=== PATIENT | female | born 1960 | race Caucasian/White ===

== ENCOUNTER 2025-02-03 10:51 | Day surgery (SDC) | payer MEDICARE, SELFPAY ==
--- NOTE | 2025-01-14 15:39 | PAT.ANESEVAL ---
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 When Was Last Pacemaker Check QUESTION #4 FULL TEXT: You/Your Family Experience fever (hyperthermia) with Anesthesia Last Oral Intake Last Oral intake: Last Oral Intake NPO since Meds taken in AM with sips of water? 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: PONV - farmworker cranberry Female Yes 01/14/25 11:09 HX of Motion Sickness No 01/14/25 11:09 HX of N/V After Surgery No 01/14/25 11:09 Non-Smoker Yes 01/14/25 11:09 Duration of Surgery greater Yes 01/14/25 11:09 than 60 minutes Number of Risk Factors 3 01/14/25 11:09 PONV Score Moderate Risk 01/14/25 11:09 Respiratory Assessment Respiratory Assessment - farmworker cranberry: Respiratory Tract Infection Hx - farmworker cranberry Hx Respiratory Tract Infection No 01/14/25 11:09 STOP Sleep Apnea STOP Sleep Apnea - farmworker cranberry: STOP Sleep Apnea - farmworker cranberry Hx Hypertension Yes 01/14/25 11:09 Hx Sleep Apnea No 01/14/25 11:09 CPAP BIPAP Do you snore loudly (louder No 01/14/25 11:09 than talking or can be heard Do you often feel tired/ No 01/14/25 11:09 fatigued/ sleepy during daytime? Has anyone observed you stop No 01/14/25 11:09 breathing during sleep? STOP Results Negative 01/14/25 11:09 QUESTION #5 FULL TEXT : Do you snore loudly (louder than talking or can be heard through closed doors)? 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 Specify any problems Hx of Preganancy in last 3 No 01/14/25 11:09 Months Nurse Filling Out Transfusion JZOLLINGE 01/14/25 11:09 & Questions: Date: 01/14/25 01/14/25 11:09 Time: 11:10 01/14/25 11:09 Patient unable to answer at this time (ie. 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 - farmworker cranberry: /Reproductive Hx- farmworker cranberry Hx Now No 01/14/25 11:09 Gestational Age (in weeks): EDC: Hx Hx Para Hx Section SAB No 01/14/25 11:09 [facility] Medical History (Updated 01/14/25 @ 11:09 by Natalia Quigley) Wears glasses Wears dentures Depression Arthritis High cholesterol Injury of head and neck Loss of consciousness Heartburn Former smoker Hypertension History of stress test History of echocardiogram Home Medications ?Medication ?Instructions ?Recorded ?Last Taken ?Type acetaminophen 500 mg capsule 500 mg PO Q6H PRN fever or pain 01/14/25 Unknown History atorvastatin 40 mg tablet 40 mg PO QHS cholesterol 01/14/25 Unknown History celecoxib 200 mg capsule 200 mg PO DAILY 01/14/25 Unknown History cholecalciferol (vitamin D3) 1,250 1,250 mcg PO QWEEK 01/14/25 Unknown History mcg (50,000 unit) capsule ketorolac 0.5 % eye drops 1 drp LEFT EYE 4X/DAY 01/14/25 Unknown History lisinopril 40 mg tablet 40 mg PO DAILY 01/14/25 Unknown History pantoprazole 40 mg tablet,delayed 40 mg PO .qd 01/14/25 Unknown History release prednisolone acetate 1 % eye 1 drp LEFT EYE 4X/DAY 01/14/25 Unknown History drops,suspension venlafaxine 37.5 mg 37.5 mg PO DAILY 01/14/25 Unknown History capsule,extended release 24 hr venlafaxine 75 mg capsule,extended 75 mg PO DAILY 01/14/25 Unknown History release 24 hr Allergy/AdvReac Type Severity Reaction Status Date / Time hydroxychloroquine AdvReac Severe blureed Verified 01/14/25 10:51 vision, nausea, migraine latex AdvReac Intermediate red Verified 01/14/25 10:51 irritated skin methotrexate AdvReac Intermediate Rash nausea Verified 01/14/25 10:51 Surgical History (Updated 01/14/25 @ 11:09 by Natalia Quigley) Hx of cholecystectomy History of partial hysterectomy Hx of colonoscopy Social History Smoking Status: Former smoker Audit: Pertinent Findings Pertinent Findings EKG Perinent findings: 04/08/2023. Suspected arm reversal per note. Normal sinus rhythm right superior axis deviation. Inferior infarct age undetermined. No other EKGs available. Echo (EF%) pertinent findings: 09/17/2019. EF 58% ?5%. Right ventricular pressure 26 mmHg. Recommendation Anesthesia Recommendation Anesthesia recommendation: OPTIMIZED for anesthesia
--- NOTE | 2025-01-18 12:43 | HP.PCM_ITS ---
History and Physical Date of Admission: 02/03/25 HPI: The patient is a 64 year old female presenting for pre-operative visit. She is scheduled for Laparoscopic bilateral salpingoophorectomy, for complex left ovarian cyst on 02/03/25. Procedure discussed along with risks, benefits and complications. Other alternatives discussed for management. Consent form signed? Yes. ? ? PAST MEDICAL HISTORY PAST MEDICAL HISTORYDiagnosisDate?Bilateral carotid artery exvopxhj83/21/2022?Us 03/2022: Rt: 0-20%, Lt 20-40%?Chronic tension headaches??Combined forms of age- related cataract of both eyes11/12/2018?Dense breast??Dry eye syndrome of both eyes11/12/2018?Elevated hemoglobin A1c12/28/2020?Iawddhdbqihm16/06/2020?Fuchs' corneal dugvplrxf34/21/2020?Gallstones??GERD (gastroesophageal reflux disease)??Hypertension, heojwwrue52/13/2022?Inflammatory rqemshvtq64/16/2022? Seeing rheum ??Long-term use of Vnpoujimw41/21/2020?Major depression, recurrent??Celexa 40 mg qd ?Menopausal and postmenopausal syxlbgja08/22/2013?Mixed gcyotugwzgilzt09/23/2013?Myopia of both eyes with astigmatism and cjzzkgyety00/09/2019?Obesity, Class I, BMI 30- 34.91?Obesity, Class II, BMI 35-39.905?Primary osteoarthritis involving multiple xmuvmc1109/10/2019?Punctate keratitis, /21/2020?S/P laparoscopic mqqydxwmalmx61/03/2023?Status post right rotator cuff cjkllw1512/11/2017?Vitamin D /04/2020?Well adult exam12/18/2020?Last done: 12/18/2020 ? ? PAST SURGICAL HISTORY PAST SURGICAL HISTORYProcedureLateralityDate? DELIVERY ONLY???CHOLECYSTECTOMY???HYSTERECTOMY HX?2007?precancerous cells/cervix , still has ovaries ?KNEE SURGERY [id number]?x 2?LAPAROSCOPIC APPENDECTOMY?04/06/2023? Dr. Mohamud?POST-CATARACT LASER NQANEIBPdqml28/26/2025?REMV CATARACT EXTRACAP,INSERT RFMXOtkr22/12/2025?Phaco w IOL OS Dr. Dash-Dutch?REPAIR MEDIAL OR LATERAL MENISCUS, TO T401Yolcx52/2024?UNSPECIFIED ORAL SURGERY PROCEDURE, BY REPORT???removal of bottom teeth ? ? ? CURRENT MEDICATIONS Current Outpatient MedicationsMedicationSigDispenseRefill?venlafaxine ER (EFFEXOR XR) 37.5 mg 24 hr capsuleTake 1 capsule by mouth once daily.90 capsule1?celecoxib (CELEBREX) 200 mg capsuleTake 1 capsule by mouth once daily.30 capsule5?lisinopril (ZESTRIL) 40 mg tabletTake 1 tablet by mouth once daily.30 tablet5?venlafaxine ER (EFFEXOR XR) 75 mg 24 hr capsuleTake 1 capsule by mouth once daily.90 capsule1?prednisoLONE acetate (PRED FORTE) 1 % ophthalmic suspensionUse 1 drop in the left eye four times daily.5 mL1?keTORolac (ACULAR) 0.5 % ophthalmic solutionUse 1 drop in the left eye four times daily.5 mL1?Gatifloxacin 0.5 % dropUse 1 drop in the left eye four times daily.2.5 mL1?semaglutide (OZEMPIC) 0.25 mg or 0.5 mg (2 mg/3 mL) pen0.25 mg a week for 4 weeks then 0.5 mg a week( faxed to [facility])4 each3?atorvastatin (LIPITOR) 40 mg tabletTake 1 tablet by mouth daily at bedtime. For cholesterol.90 tablet1?pantoprazole DR (PROTONIX) 40 mg tabletTake 1 tablet by mouth once daily. 30 min prior to ghyuuwoez01 tablet1?cholecalciferol, Vitamin D3, (VITAMIN D3) 1,250 mcg (50,000 unit) cap capsuleTake 1 capsule by mouth one time a week. (Patient taking differently: Take 1 capsule by mouth one time a week.)12 capsule3?albuterol HFA (PROVENTIL HFA, VENTOLIN HFA) 90 mcg/actuation inhalerInhale 2 Puffs as instructed every 6 hours as needed for wheezing/shortness of breath.1 Each0?aspirin, enteric coated (ASPIRIN, ENTERIC COATED) 81 mg EC tabletTake 1 tablet by mouth once daily.???acetaminophen (TYLENOL ARTHRITIS ORAL)Take by mouth.???No current facility-administered medications for this visit. ? ? ALLERGIES: Latex, Methotrexate, and Plaquenil [Hydroxychloroquine] ? PERSONAL HISTORY: SOCIAL HISTORY Social History?Tobacco Use?Smoking status:Former??Current packs/day:0.00??Average packs/day:0.5 packs/day for 5.0 years (2.5 ttl pk- yrs)??Types:Cigarettes??Start date:11/29/1983??Quit date:11/28/1988??Years since quittin.1?Smokeless tobacco:NeverVaping Use?Vaping status:Never Used Substance Use Topics?Alcohol use:Not Currently??Comment: rare ?Drug use:No ? FAMILY HISTORY: FAMILY HISTORY FAMILY HISTORY ProblemRelationAge of Onset?Mental illnessMother??StrokeFather??Mental illnessSister??Alzheimer's DiseasePaternal Grandmother??HeartPaternal Grandfather??PsychiatryOther?? on mom's side ?No Ocular DiseaseOther??Anesthesia ProblemsNo Family History? ? ? REVIEW OF SYMPTOMS: GENERAL: denies fevers or chills ENDOCRINOLOGY: has not been on steroids Cardiology : denies palpitations or chest pain Respiratory: denies SOB or cough Hematology: denies history of prolonged bleeding or easy bruising or VTE Allergy: Denies history of personal or family history of allergy to anesthesia ? PHYSICAL EXAMINATION: ? VITALS: Blood pressure 132/84, pulse 93, height 163.2 cm (5' 4.25), weight 89.8 kg (198 lb), last menstrual period 07/07/2007, SpO2 98%. ? GENERAL: The patient is well nourished, well hydrated in no acute distress. , The patient is oriented to time, place, and person. NECK: Supple. No lynphadenopathy, normal thyroid, no thyromegaly. LUNGS: Clear to auscultation bilaterally. no wheezes, rhonchi or rales HEART: Regular rate and rhythm, Normal heart sounds, and No murmurs or gallops ? IMPRESSION: complex left ovarian cyst, pelvic pain ? PLAN: The risks/benefits/alternatives and personal involved for the planned laparoscopic BSO were reviewed with the patient. Her questions were answered to her satisfaction and she desires to proceed. Consent was signed. I reviewed with her postop instructions and expectations. D/wher may not completely resolve pain ? I have reviewed and updated past medical and surgical history, medications and allergies Assessment & Plan Assessment/Plan (1) Pelvic pain: (2) Left ovarian cyst:
--- NOTE | 2025-01-24 08:53 | EKG12_ITS ---
Test Reason : PREOP Blood Pressure : */* mmHG Vent. Rate : 76 BPM Atrial Rate : 76 BPM P-R Int : 158 ms QRS Dur : 90 ms QT Int : 386 ms P-R-T Axes : 38 -25 17 degrees QTcB Int : 434 ms Normal sinus rhythm Minimal voltage criteria for LVH, may be normal variant Cannot rule out Inferior infarct , age undetermined Abnormal ECG Confirmed by Robson Hayden ([id number]), commercial production editor YOEL PERDUE ([id number]) on 01/25/2025 5:41:35 AM Referred By: Imelda Seals Confirmed By: Robson Hayden
[2025-01-24 09:57] LABS: Hematocrit 38.0 % (37-47); Hemoglobin 13.0 g/dL (12.0-15.0); Mean Corp Hgb Conc 34.2 g/dL (32-36); Mean Corpuscular Volume 86.0 fL (81-99); Mean Platelet Vol. 9.2 fl (6.2-12.0); Platelet Count 251 K/mm3 (150-450); RBC Distribution Width CV 13.8 % (11.6-14.6); RBC Distribution Width SD 43.4 fl (35.1-43.9); Red Blood Count 4.42 M/mm3 (4.2-5.4); White Blood Count 6.5 K/mm3 (4.4-11.0)
[2025-01-24 10:54] LABS: Anion Gap 12 (5-15); BUN 13 mg/dL (4-19); BUN/Creat Ratio 18.1 RATIO (10-20); Calcium,Total 9.7 mg/dL (7.6-11.0); Carbon Dioxide 25.1 mmol/L (21.0-32.0); Chloride 105 mmol/L (98-108); Glucose 111 mg/dL (70-99); Potassium 4.3 mmol/L (3.3-5.1)
--- NOTE | 2025-01-24 16:33 | PAT.ANE_ITS ---
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 When Was Last Pacemaker Check QUESTION #4 FULL TEXT: You/Your Family Experience fever (hyperthermia) with Anesthesia Last Oral Intake Last Oral intake: Last Oral Intake NPO since Meds taken in AM with sips of water? Meds patient instructed to take am of surgery PONV PONV - edger liner: PONV - edger liner Female Yes 01/14/25 11:09 HX of Motion Sickness No 01/14/25 11:09 HX of N/V After Surgery No 01/14/25 11:09 Non-Smoker Yes 01/14/25 11:09 Duration of Surgery greater Yes 01/14/25 11:09 than 60 minutes Number of Risk Factors 3 01/14/25 11:09 PONV Score Moderate Risk 01/14/25 11:09 Respiratory Assessment Respiratory Assessment - edger liner: Respiratory Tract Infection Hx - edger liner Hx Respiratory Tract Infection No 01/14/25 11:09 STOP Sleep Apnea STOP Sleep Apnea - edger liner: STOP Sleep Apnea - edger liner Hx Hypertension Yes 01/14/25 11:09 Hx Sleep Apnea No 01/14/25 11:09 CPAP BIPAP Do you snore loudly (louder No 01/14/25 11:09 than talking or can be heard Do you often feel tired/ No 01/14/25 11:09 fatigued/ sleepy during daytime? Has anyone observed you stop No 01/14/25 11:09 breathing during sleep? STOP Results Negative 01/14/25 11:09 QUESTION #5 FULL TEXT : Do you snore loudly (louder than talking or can be heard through closed doors)? 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 Specify any problems Hx of Preganancy in last 3 No 01/14/25 11:09 Months Nurse Filling Out Transfusion JZOLLINGE 01/14/25 11:09 & Questions: Date: 01/14/25 01/14/25 11:09 Time: 11:10 01/14/25 11:09 Patient unable to answer at this time (ie. 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 - edger liner: /Reproductive Hx- edger liner Hx Now No 01/14/25 11:09 Gestational Age (in weeks): EDC: Hx Hx Para Hx Section SAB No 01/14/25 11:09 [facility] Medical History (Updated 01/18/25 @ 12:[address] Imelda Seals MD) Wears glasses Wears dentures Depression Arthritis High cholesterol Injury of head and neck Loss of consciousness Heartburn Former smoker Hypertension History of stress test History of echocardiogram Home Medications ?Medication ?Instructions ?Recorded ?Last Taken ?Type acetaminophen 500 mg capsule 500 mg PO Q6H PRN fever o r pain 01/14/25 Unknown History atorvastatin 40 mg tablet 40 mg PO QHS cholesterol 05/31 Unknown History celecoxib 200 mg capsule 200 mg PO DAILY 01/14/25 Unk nown History cholecalciferol (vitamin D3) 1,250 1,250 mcg PO QWEEK 01/14/25 Unknown History mcg (50,000 unit) capsule ketorolac 0.5 % eye drops 1 drp LEFT EYE 4X/DAY Unknown History lisinopril 40 mg tablet 40 mg PO DAILY 01/14/25 Unkn own History pantoprazole 40 mg tablet,delayed 40 mg PO .qd 5 Unknown History release prednisolone acetate 1 % eye 1 drp LEFT EYE 4X/DAY 05/31 Unknown History drops,suspension venlafaxine 37.5 mg 37.5 mg PO DAILY 01/14/25 Un known History capsule,extended release 24 hr venlafaxine 75 mg capsule,extended 75 mg PO DAILY 01/04 07/31 Unknown History release 24 hr Allergy/AdvReac Type Severity Reaction Status Date / Time hydroxychloroquine AdvReac Severe blureed Verified 01/14/25 10:51 vision, nausea, migraine latex AdvReac Intermediate red Verified 01/14/25 10:51 irritated skin methotrexate AdvReac Intermediate Rash nausea Verified 01/14/25 10:51 Surgical History (Updated 01/14/25 @ 11:09 by Natalia Quigley) Hx of cholecystectomy History of partial hysterectomy Hx of colonoscopy Social History Smoking Status: Former smoker Audit: Pertinent Findings HISTORY of Pertinent Findings History of Pertinent Findings: EKG Pertinent Findings EKG Perinent findings 04/08/2023. Suspected arm 01/14/25 15:42 reversal per note. Normal sinus rhythm right superior axis deviation. Inferior infarct age undetermined. No other EKGs available. Echo Pertinent Findings Echo (EF%) pertinent findings 09/17/2019. EF 58% ?5%. 01/14/25 15:42 Right ventricular pressure 26 mmHg. Pertinent Findings EKG Perinent findings: January 24, 2025. Normal sinus rhythm. Minimal voltage criteria for LVH. Inferior infarct age undetermined. Recommendation Anesthesia Recommendation Anesthesia recommendation: OPTIMIZED for anesthesia
[2025-02-03] VITALS (14 sets, daily range): BP systolic 103–147; BP diastolic 65–91; PULSE 73–99; RESP 14–16; TEMP 36.2–36.4; O2SAT 92–98; BMI 34.1
[2025-02-03] MEDS: Lactated Ringers 1,000 ML 15 ML IV (11:34)
--- NOTE | 2025-02-03 11:51 | PRE.ANES_ITS ---
ASA Classification* ASA Classification ASA Classification: 2 Assessment & Plan Anesthesia* Anesthesia Assessment Anesthesia Assessment: Discussed sedation and/or anesthesia options, risks, benefits, and alternatives with patient/parents/legal guardian/POA. Questions invited. The patient/parents/legal guardian/POA seems to understand and agrees to proceed with anesthesia plan. Reviewed the physical assessment, medical history, allergy history and patient home medications list prior to surgery/procedure/anesthetic and documented any changes. Performed airway and anesthesia risk assessments. Anesthesia Type Anesthesia Type: General History Source History Obtained from:: Patient and Chart Anesthesia Focused Assessment* Temperature: 97.5 F Pulse Rate: 81 Blood Pressure: 147/86 Respiratory Rate: 16 Pulse Ox: 98 Oxygen Delivery Method: Room Air Airway Assessment Mouth opens: >3 cm Mallampati Score: II Teeth Condition: Dentures Neck Range of motion (ROM): Limited ROM Labs Anesthesia Preop lab: CBC WBC 6.5 K/mm3 (4.4-11.0) 01/24/25 09:12 01/24/25 RBC 4.42 M/mm3 (4.2-5.4) 01/24/25 09:12 01/24/25 Hgb 13.0 g/dL (12.0-15.0) 01/24/25 09:12 01/24/25 Hct 38.0 % (37-47) 01/24/25 09:12 01/24/25 Plt Count 251 K/mm3 (150-450) 01/24/25 09:12 01/24/25 CHEMISTRY Potassium 4.3 mmol/L (3.3-5.1) 01/24/25 09:12 01/24/25 Sodium 142 mmol/L (133-145) 01/24/25 09:12 01/24/25 BUN 13 mg/dL (4-19) 01/24/25 09:12 01/24/25 Creatinine 0.74 mg/dL (0.70-1.20) 01/24/25 09:12 01/24/25 Glucose 111 mg/dL (70-99) H 01/24/25 09:12 01/24/25 COAG Pre-Assessment Diagnosis/Proposed Procedure Planned Operative Procedure(s): (B) Laparoscopic, bilateral Salpingo- oopherectomy Anesthesia History 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 When Was Last Pacemaker Check QUESTION #4 FULL TEXT: You/Your Family Experience fever (hyperthermia) with Anesthesia Last Oral Intake Last Oral intake: Last Oral Intake NPO since 20:00 02/03/25 11:25 Meds taken in AM with sips of Yes 02/03/25 11:25 water? 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 Female Yes 01/14/25 11:09 HX of Motion Sickness No 01/14/25 11:09 HX of N/V After Surgery No 01/14/25 11:09 Non-Smoker Yes 01/14/25 11:09 Duration of Surgery greater Yes 01/14/25 11:09 than 60 minutes Number of Risk Factors 3 01/14/25 11:09 PONV Score Moderate Risk 01/14/25 11:09 Height & Weight Height & Weight: Anesthesia: Height & Weight Height 5 ft 4 in 02/03/25 11:25 Weight: 90.2 kg 02/03/25 11:25 Body Mass Index (BMI) 34.1 02/03/25 11:25 Respiratory Assessment Respiratory Assessment - construction pit worker: Respiratory Tract Infection Hx - construction pit worker Hx Respiratory Tract Infection No 01/14/25 11:09 STOP Sleep Apnea STOP Sleep Apnea - construction pit worker: STOP Sleep Apnea - construction pit worker Hx Hypertension Yes 01/14/25 11:09 Hx Sleep Apnea No 01/14/25 11:09 CPAP BIPAP Do you snore loudly (louder No 01/14/25 11:09 than talking or can be heard Do you often feel tired/ No 01/14/25 11:09 fatigued/ sleepy during daytime? Has anyone observed you stop No 01/14/25 11:09 breathing during sleep? STOP Results Negative 01/14/25 11:09 QUESTION #5 FULL TEXT : Do you snore loudly (louder than talking or can be heard through closed doors)? 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 Specify any problems Hx of Preganancy in last 3 No 01/14/25 11:09 Months Nurse Filling Out Transfusion JZOLLINGE 01/14/25 11:09 & Questions: Date: 01/14/25 01/14/25 11:09 Time: 11:10 01/14/25 11:09 Patient unable to answer at this time (ie. 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: /Reproductive Hx- construction pit worker Hx Now No 01/14/25 11:09 Gestational Age (in weeks): EDC: Hx Hx Para Hx Section SAB No 01/14/25 11:09 Active Medications Active Medications: Current Medications Generic Name Dose Route Start Last Admin Trade Name Freq PRN Reason Stop Dose Admin Acetaminophen 1,000 mg 02/03/25 12:25 02/03/25 11:35 Acetaminophen 500 Mg Tablet PO 02/03/25 12:26 1,000 mg PREOP ONE Administration Lactated Ringer's 1,000 mls @ 15 mls/hr 02/03/25 11:00 02/03/25 11:34 IV 15 mls/hr .Q48H RISSA Administration PFSH Medical History Wears glasses Wears dentures Depression Arthritis High cholesterol Injury of head and neck Loss of consciousness Heartburn Former smoker Hypertension History of stress test History of echocardiogram Home Medications ?Medication ?Instructions ?Recorded ?Last Taken ?Type acetaminophen 500 mg capsule 500 mg PO Q6H PRN fever o r pain 01/14/25 02/02/25 History atorvastatin 40 mg tablet 40 mg PO QHS cholesterol 05/3102/02/25 History celecoxib 200 mg capsule 200 mg PO DAILY 01/14/25 History cholecalciferol (vitamin D3) 1,250 1,250 mcg PO QWEEK 01/14/25 02/03/25 History mcg (50,000 unit) capsule ketorolac 0.5 % eye drops 1 drp LEFT EYE 4X/DAY 02/03/25 History lisinopril 40 mg tablet 40 mg PO DAILY 01/14/2501/06 History pantoprazole 40 mg tablet,delayed 40 mg PO .qd 5 02/02/25 History release venlafaxine 37.5 mg 37.5 mg PO DAILY 01/14/25 History capsule,extended release 24 hr venlafaxine 75 mg capsule,extended 75 mg PO DAILY 01/0402/02/25 History release 24 hr Allergy/AdvReac Type Severity Reaction Status Date / Time hydroxychloroquine AdvReac Severe blureed Verified 02/03/25 11:15 vision, nausea, migraine latex AdvReac Intermediate red Verified 02/03/25 11:15 irritated skin methotrexate AdvReac Intermediate Rash nausea Verified 02/03/25 11:15 Surgical History Hx of cholecystectomy History of partial hysterectomy Hx of colonoscopy Social History Smoking Status: Former smoker Review of Systems (Anesthesia) ROS Narrative System reviewed and no additional complaints, except as documented.
--- NOTE | 2025-02-03 13:57 | PCM.DC ---
Discharge Instructions DC O2, CPAP, BIPAP needs Home O2 Discharge instructions: No Dressing / Incision Discharge Activity: May Drive (in 3-5 days when no longer taking pain medication) May shower in (days): 1 May resume sexual activity in: No Restrictions Lifting Restrictions: 15 lbs x1 weeks Additional Activity Instructions:: Ambulate often the next week after surgery. Dressing / Incision Call your doctor if your incision/area has: Continuous Slow Oozing, Sudden Increased Bleeding, Increased Pain/ Swelling, Increased Redness and Foul Smelling Discharge Call your doctor if you observe: Fever of 101 or Higher and Inability to have a bowel movement Cleanse incision/area with: Soap & Water Additional Dressing/Incision Instructions:: Your incisions have skin glue, it can get wet. Leave it on for 10-14 days or until it falls off. Follow Up Care Please Follow Up With: Imelda Seals MD When: Call [phone] for a postop appointment. Send a [employer] message or call for questions or concerns. Test Results: Test results from this visit will be discussed in further detail at your follow-up appointment, if applicable. Discharge Plan Admission Primary Reason for Your Visit: Laparsocopy with lysis of adhesions Attending Provider: Imelda Seals Primary Care Provider: Dennis Lewis Instructions Print Language: Vietnamese Discharge Orders/Prescriptions Prescriptions: New oxycodone 5 mg tablet 5 mg PO Q8H PRN PRN (Reason: severe pain) 5 Days Qty: 10 0RF Continued celecoxib 200 mg capsule 200 mg PO DAILY atorvastatin 40 mg tablet 40 mg PO QHS venlafaxine 37.5 mg capsule,extended release 24hr 37.5 mg PO DAILY venlafaxine 75 mg capsule,extended release 24hr 75 mg PO DAILY ketorolac 0.5 % drops 1 drp LEFT EYE 4X/DAY pantoprazole 40 mg tablet,delayed release (DR/EC) 40 mg PO .qd lisinopril 40 mg tablet 40 mg PO DAILY cholecalciferol (vitamin D3) 1,250 mcg (50,000 unit) capsule 1,250 mcg PO QWEEK acetaminophen 500 mg capsule 500 mg PO Q6H PRN (Reason: fever or pain) Referrals / Follow Up: Dennis Lewis MD [Primary Care Provider] - Disposition Disposition (needs filled in before D/C Order can be placed): Home, Self Care
--- NOTE | 2025-02-03 13:59 | PCM.OPRPT ---
Problems Associated Problem List Diagnoses (1) Left ovarian cyst: (2) Pelvic pain: Operative Report (Standard) Operative Information Date of Procedure: 02/03/25 Pre-Operative Diagnosis: pelvic pain, left ovarian cyst Post-Operative Diagnosis: same Surgery/Procedure Performed: Diagnostic laparoscopy with lysis of omental adhesions and pelvic washings rug repairer: Yes Concrete Stone Finisher: Alma Saldivar Tasks completed by rn first assistant: Trocar and Retracting Type of Anesthesia: General RN Documented Start/Stop Times: Operation Date: 02/03/25 12:25 Case Time Into Pre-Op 02/03/25 10:58 Out of Pre-Op 02/03/25 13:01 Anesthesia Start 02/03/25 13:05 Into Room 02/03/25 13:05 Procedure Start 02/03/25 13:28 Procedure End 02/03/25 13:50 Procedure Start Time: 13:28 Procedure Stop Time: 13:50 Select all DRAINS/GRAFTS/IMPLANTS that apply: None Special Medications: none Estimated Blood Loss: 5 Fluids Replaced: 700 cc Specimen collected: Yes Description of specimen(s) removed: peritoneal/pelvic washings Description of surgery: The patient was taken to the operating room where she was prepped and draped in the dorsolithotomy position. A sponge stick was placed in the vagina. Attention was turned to the abdomen. All port sites were infiltrated with 0.5% Marcaine before skin incisions were made. A 5 mm supraumbilical midline incision was made. The anterior abdominal wall was tented up with 2 towel clamps while a 5 mm blade less trocar and sleeve were inserted using the Visiport. Intraperitoneal placement was confirmed with the laparoscope. The pneumoperitoneum was created and the underlying abdominal contents were intact. The patient was placed in Trendelenburg. Right and left lower quadrant ports were placed under direct visualization lateral to the inferior epigastric vessels. There was a wall of omental adhesions where her midline hysterectomy scar had previously been. I took down some adhesions for approximately 12 minutes to allow visualization of the pelvis. After I did this there was still extensive amount of small bowel and colon adhered to the anterior abdominal wall pelvic sidewalls and over the area where the bladder and vaginal cuff would be. I did try to manipulate the bowel and some of the adhesions gently and looked in the areas where the ovarian fossa would be and the the ovaries and tubes were not visualized. There were no masses noted. There is no peritoneal studding. The upper abdominal cavity appeared free of adhesions and normal. At this point without consulting a general surgeon and extensive lysis of adhesions would be impossible to visualize ovaries and/or safely remove them. Even if I were to get a general surgeon to take down the adhesions there is no guarantee that I would be able to safely and adequately remove the ovaries in their entirety as they may be adhered to large pelvic vessels or over the ureters. Decision was made at that point to do pelvic peritoneal washings and end the case. The pneumoperitoneum was released and the ports were removed. The skin incisions were closed with Monocryl suture in a subcuticular fashion and skin glue was placed. I performed the entire procedure with assistance. There were no qualified residents available. I remove the sponge stick and a vaginal sweep was completed by me. Sponge and needle counts were correct. Patient was awakened taken recovery room in stable condition. Surgical Findings: Extensive adhesions of omentum to anterior abdominal wall and pelvic sidewalls, bowel/colon adhered to anterior abdominal wall and obliterating the vaginal cuff. Unable to visualize ovaries or vaginal cuff Complications Complications: No
--- NOTE | 2025-02-03 14:12 | PCM.POST.ANE ---
Anesthesia: Postop Eval I Current Vital Signs Temperature: 97.2 F Pulse Rate: 99 Blood Pressure: 143/71 Respiratory Rate: 16 Pulse Ox: 92 Oxygen Delivery Method: Room Air Assessment Airway patent: Yes Spontaneous unlabored respirations: Yes Mental status: Awake and Calm nausea: No Vomiting: No Anesthesia Complication: No Fluid Hydration Crystalloid volume administer (ml): 700 Total IV fluid infused: 700 Progress Note Anesthesia document: Postop Eval 1 completed: Yes
--- NOTE | 2025-02-03 14:43 | POSTOPAN2_ITS ---
Anesthesia Postop Eval I Sum Postop Eval Completion status Anesthesia document: Postop Eval 1 completed: Yes Anesthesia Postop Eval I Summary Anesthesia Postop Eval I Summary: Anesthesia Postop Eval I: Assessment Summary Airway patent Yes 02/03/25 14:12 COMMUNITY [email or web address] [email or web address] Spontaneous unlabored Yes 02/03/25 14:12 COMMUNITY ARTS WORKER.[email or web address] respirations Mental status Awake,Calm 02/03/25 14:12 COMMUNITY [email or web address] [email or web address] nausea No 02/03/25 14:12 COMMUNITY ARTS WORKER.[email or web address] Vomiting No 02/03/25 14:12 COMMUNITY [email or web address] WORKER.[email or web address] Anesthesia Postop Eval I: Fluid Summary Crystalloid volume administer 700 02/03/25 14:12 COMMUNITY ARTS WORKER.[email or web address] (ml) Colloids volume administered ( ml) Blood Product volume administered (ml) Total IV fluid infused 700 02/03/25 14:12 COMMUNITY ARTS WORKER.[email or web address] Anesthesia Postop Eval I: Summary Notes Anesthesia Complication No 02/03/25 14:12 COMMUNITY [email or web address] [email or web address] Anesthesia Complication Comment: Post-operative progress note Anesthesia: Postop Eval II Evaluation Mental status: Awake and Calm Pain Level: 1 nausea: No Vomiting: No Complications Anesthesia Complication: No
--- NOTE | 2025-02-03 14:43 | PCM.POSTANE2 ---
Anesthesia Postop Eval I Sum Postop Eval Completion status Anesthesia document: Postop Eval 1 completed: Yes Anesthesia Postop Eval I Summary Anesthesia Postop Eval I Summary: Anesthesia Postop Eval I: Assessment Summary Airway patent Yes 02/03/25 14:12 OIL [email or web address] Spontaneous unlabored Yes 02/03/25 14:12 OIL [email or web address] respirations Mental status Awake,Calm 02/03/25 14:12 OIL [email or web address] nausea No 02/03/25 14:12 OIL [email or web address].[email or web address] Vomiting No 02/03/25 14:12 OIL [email or web address].[email or web address] Anesthesia Postop Eval I: Fluid Summary Crystalloid volume administer 700 02/03/25 14:12 OIL [email or web address].[email or web address] (ml) Colloids volume administered ( ml) Blood Product volume administered (ml) Total IV fluid infused 700 02/03/25 14:12 OIL [email or web address].[email or web address] Anesthesia Postop Eval I: Summary Notes Anesthesia Complication No 02/03/25 14:12 OIL [email or web address].[email or web address] Anesthesia Complication Comment: Post-operative progress note Anesthesia: Postop Eval II Evaluation Mental status: Awake and Calm Pain Level: 1 nausea: No Vomiting: No Complications Anesthesia Complication: No
--- NOTE | 2025-02-03 16:20 | FLU_PTH ---
PATIENT: JACOB ARREDONDO LOC: [facility] – [place] U#:[id number] AGE/SX: 64/F ROOM: RE02/03/[address]: Dr. Imelda Seals MD : 1960 BED: DIS: 02/03/2025 SPEC #: [id number] RECD: 02/09/25 15:39 STATUS: MELI REGeoff #: [id number] MILLY: 02/03/25 16:[address]: Imelda Seals DEPT: CYTOLOGY RECD BY: Kim Emery ENTERED: 02/09/25 15:40 SP TYPE: Fluid OTHR DR: Dr. Dennis Lewis MD Tissues: A - Pelvis, NOS Procedures: Special Stain Group II Surgery Specimen Level IV Cytospin Fluid HEADER OPERATION: Not noted PRE-OP DIAGNOSIS: Pelvic and perineal pain TISSUE SUBMITTED: A- Pelvic washings DIAGNOSIS CYTOLOGY A. Pelvic washings (cytospin, cellblock): - Atypical cells of undetermined significance. CYTOLOGY STUDY Slides are reviewed. CYTOLOGY GROSS A. Received is 35 ml of clear fluid labeled with the patient's name and and designated per the requisition as Pelvic washings. Submitted for cytology and cell block preparation. Mr 02/09/2025 CPT: 65999,64266
== END 2025-02-03 16:20 | disposition home or self-care (01) ==
LOC: SDC 10:53 → AC 10:54
PROVIDERS: PCP Family Medicine; Referring Provider Obstetrics & Gynecology; Visit Provider Obstetrics & Gynecology
PROC: (CPT 58660; principal; 2025-02-03 12:10)
DX: K66.0 Peritoneal adhesions (postprocedural) (postinfection) (principal); N83.202 Unspecified ovarian cyst, left side; R10.2 Pelvic and perineal pain; I10 Essential (primary) hypertension; K21.9 Gastro-esophageal reflux disease without esophagitis; F32.A Depression, unspecified; M79.7 Fibromyalgia; E78.00 Pure hypercholesterolemia, unspecified; Z90.49 Acquired absence of other specified parts of digestive tract; Z87.891 Personal history of nicotine dependence; Z79.899 Other long term (current) drug therapy
CPT/HCPCS: 58660; 00840; 36415; 80048; 85027; 87070; 87075; 87205; 88108; 88305; 88313; 93005; J2405